=== PATIENT | female | born 1980 | race Caucasian/White ===

== ENCOUNTER 2016-05-12 13:17 | Emergency (ER) | payer OTHER ==
[~2016-05-12] VITALS: Ht 167.6 cm; Wt 89.8 kg
[~2016-05-12 13:17] MED LIST: AMITRIPTYLINE H50 M1 PO; AMITRIPTYLINE100 M2 PO; CIPRO 500MG TA500 MG PO; CLINDAMYCIN HC300 M1 PO; FIORICET-COD 51 EACH PO; FLUTICASONE PRO16 GM NASB; MACROBID 100 M100 MG PO; METHIMAZOLE5 M1 PO; METHIMAZOLE5 MG PO; MOTRIN 400MG (400 MG PO; MULTI-DAY VITA1 EACH PO; OLANZAPINE5 MG PO; PERCOCET 325 MG1 TA2 PO; PRILOSEC20 M1 PO; PYRIDIUM200 M1 PO; SIMVASTATIN10 M1 PO; TOPAMAX50 M1 PO; TORADOL10 MG PO; VALACYCLOVIR500 M1 PO; VISTARIL50 M1 PO; VITAMIN D32000 UNI1 PO; ZOFRAN4 M1 SL; ZYPREXA2.5 M1 PO
[2016-05-12 13:26] VITALS: BP 128/86
--- NOTE | 2016-05-12 13:30 | ED INFLUENZA/URI COMPLAINT ---
History of Present Illness General Chief Complaint: General Adult Stated Complaint: SOB,CHEST CONGESTION Source: patient, old records Exam Limitations: no limitations Vital Signs & Intake/Output Vital Signs & Intake/Output Vital Signs Date Time Temp Pulse Resp B/P Pulse O2 O2 Flow FiO2 Ox Delivery Rate 05/12 1346 95 Room Air 05/12 1342 99 05/12 1326 97.4 103 18 128/86 97 Room Air Allergies Coded Allergies: Sulfa (Sulfonamide Antibiotics) (RASH 10/01/15) amoxicillin (From AUGMENTIN) (RASH 10/01/15) cefuroxime (RASH 10/01/15) clavulanic acid (From AUGMENTIN) (RASH 10/01/15) propylthiouracil (RASH 10/01/15) Reconcile Medications Albuterol Sulfate (Proair Hfa) 90 MCG HFA.AER.AD 2 PUF INH Q4-6 PRN PRN WHEEZING Amitriptyline HCl 100 MG TABLET 1 TAB PO QPM MIGRAINES (Reported) Azithromycin (Zithromax) 250 MG TABLET 1 DP PO AD BRONCHITIS 2 the first day followed by 1 for days 2-5 Cholecalciferol (Vitamin D3) (Vitamin D3) 2,000 UNIT TABLET 1 TAB PO DAILY SUPPLEMENT (Reported) Clonazepam 1 MG TABLET 1 TAB PO QPM SLEEP (Reported) Fluticasone Propionate 16 GM SPRAY.SUSP 2 SPRAY NASB DAILY ALLERGIES ( Reported) Methimazole 5 MG TABLET 0.5 TAB PO DAILY THYROID (Reported) Methylprednisolone. (Medrol) 4 MG TAB.DS.PK 1 DP PO AD REACTIVE AIRWAY 6 on day 1 then reduce by one tablet daily until gone Multivitamin (Multi-Day Vitamins) 1 EACH TABLET 1 TAB PO DAILY SUPPLEMENT ( Reported) Olanzapine (Zyprexa) 2.5 MG TABLET 0.5 TAB PO QPM MENTAL HEALTH (Reported) Omeprazole 40 MG CAPSULE.DR 1 CAP PO DAILY GI (Reported) Pantoprazole Sodium 40 MG TABLET.DR 1 TAB PO DAILY GI (Reported) Simvastatin (Simvastatin*) 10 MG TABLET 1 TAB PO QPM CHOLESTEROL (Reported) SUMAtriptan (Zembrace Symtouch) 3 MG/0.5 ML PEN.INJCTR 1 INJ IM PRN HEADACHE (Reported) Topiramate (Topamax) 50 MG TABLET 1 TAB PO BID HEADACHE (Reported) VALACYCLOVIR HCL (Valacyclovir) 500 MG TABLET 1 TAB PO BID INFECTION ( Reported) Triage Note: PT STATES SHE HAS BEEN SICK AND IS FEELING THAT HER CHEST IS TIGHT AND SHE CAN'T BREATH. PT STATES SHE HAS HAD A COLD. Triage Nurses Notes Reviewed? yes Onset: Gradual Duration: week(s): (1), constant, getting worse Timing: recent history Severity: mild Severity Numbers: 4 No Modifying Factors: none Associated Symptoms: cough, muscle aches, nasal congestion, nasal drainage, shortness of breath : No Patient currently breastfeeds: No HPI: 35-year-old female with history of Graves' disease presents emergency room today complaining of a nonproductive cough and rhinorrhea congestion sinus pressure for the past 1 week. She states that she woke up this morning feeling short of breath. No history of asthma she does not smoke. She is not attempted taking any medications for her symptoms. She denies any chest pain hemoptysis abdominal pain nausea vomiting or diarrhea. There are no modifying factors or associated symptoms otherwise. (NIRANJAN IQBAL) Past History Travel History Traveled to [place] past 21 day No Medical History Any Pertinent Medical History? see below for history Neurological: migraine Cardiovascular: hyperlipidemia Gastrointestinal: GERD Hepatic: cholelithiasis Renal: nephrolithiasis x 3-4 Psychiatric: bipolar disease, depression Endocrine: Grave's disease Blood Disorders: NONE Cancer(s): NONE DAYTIME CAREGIVER/Reproductive: NONE Surgical History Surgical History: appendectomy, cholecystectomy, , hysterectomy, tubal ligation, laparoscopy for ectopic lithotripsy Psychosocial History Who do you live with Family Services at Home None What is your primary language Hungarian Tobacco Use: Never used ETOH Use: denies use Illicit Drug Use: denies illicit drug use Family History Family History, If Any: MOTHER FH: breast cancer FATHER FH: hyperlipidemia GRANDMOTHER FH: diabetes mellitus Hx Contributory? No (NIRANJAN IQBAL) Review of Systems Review of Systems Constitutional: Reports: see HPI. Comments Review of systems: See HPI, All other systems negative. Constitutional, no chills no fever, no malaise HEENT: No visual changes no sore throat no congestion, no ear pain Cardiovascular: No chest pain , no palpitation Skin, no rashes, no change in skin Respiratory: No dyspnea no cough no sputum GI: No nausea no vomiting, no diarrhea : No dysuria Muscle skeletal: No joint pain, no back pain, no neck pain, Neurologic: No numbness no headache Psych: No stress Heme/endocrine: No bruising no bleeding Immunology: No lymphadenopathy (NIRANJAN IQBAL) Physical Exam Physical Exam General Appearance: well developed/nourished, no apparent distress, alert, awake Ears, Nose, Throat: normal ENT inspection, moist mucous membrane Comments: Well-developed well-nourished patient in no apparent distress. Head/Face: Atraumatic, no maxillary/frontal sinus tenderness, no facial swelling Eyes: PERRL, EOMI, no conjunctival injection Ear:External auditory canal and Tympanic membranes clear, no erythema, no FB. Nose: atraumatic.Normal inspection: No bleeding Throat: Moist mucous membranes.Pharynx normal. No pharyngeal erythema/exudate seen. No stridor/drooling or assymetry. No swelling or edema. Neck: Supple, no lymphadenopathy, FROM Back: FROM, Nontender Cardiovascular: Regular rate and rhythms no murmurs rubs Respiratory: Chest nontender.There were no bony deformities, no asymmetry. No respiratory distress. Patient speaking in full complete sentences. Breath sounds clear to auscultation bilaterally: NO W/R/R Extremities: full range of motion Neuro: Alert and oriented x3 Skin: Warm & dry;No appreciable rash on exposed skin Psych: Mood affect normal, normal memory normal judgment. Core Measures Severe Sepsis Present: No Septic Shock Present: No (NIRANJAN IQBAL) Progress Differential Diagnosis: influenza, pneumonia, pharyngitis, sinusitis, bronchitis asthma PE Plan of Care: Current Medications Sig/Zain Start time Last Medication Dose Stop Time Status Admin Prednisone 60 MG DAILY 05/13 1000 AC . Patient appears in no apparent distress at this time speaking in full complete sentences. DuoNeb prednisone 60 mg by mouth ordered chest x-ray ordered 05/12/2016 3:16:51 PM REPEAT EVALUATION PATIENT REPORTS HER SYMPTOMS HAVE IMPROVED RESOLVED WITH BREATHING TREATMENT AND PREDNISONE. I discussed with the patient at length all of their x-ray results, need for close follow up with their primary care physician this week. I answered all of their questions, discharge instructions were given and discussed with the patient. They were given instructions as to when to return. I discussed the medications that will be provided with the patient. I gave them signs and symptoms that could indicate an adverse reaction. I have advised them to limit their activities until they can see how they respond to the medication. They feel comfortable with the plan. (NIRANJAN IQBAL) Diagnostic Imaging: Viewed by Me: Radiology Read. Discussed w/RAD: Radiology Read. Radiology Impression: : 80 LOCATION: [facility], [place] ORDERING PHYSICIAN: NIRANJAN VELEZ SERVICE DATE: 05/12/162462 EXAM TYPE: RAD - XRY-CHEST XRAY, PA AND LATERAL EXAMINATION: XR CHEST CLINICAL INFORMATION: Cough and shortness of breath. COMPARISON: 08/17/2014 TECHNIQUE: PA and lateral views of the chest were obtained. FINDINGS: Lungs are well expanded and clear with exception of a faintly visible, linear opacity from focal scar or discoid atelectasis in the lingula. There is no pulmonary consolidation or pleural effusion. Cardiac silhouette is normal in size. The mediastinal and hilar contours are normal. The trachea is midline in position. No acute skeletal findings. IMPRESSION: No significant findings. No evidence of pneumonia or hilar lymphadenopathy. DICTATED BY: CORONA RIVERA MD DATE/TIME DICTATED:05/12/161437 COFOUNDER:MELLISSA DATE/TIME TRANSCRIBED:05/12/161437 CONFIDENTIAL, DO NOT COPY WITHOUT APPROPRIATE AUTHORIZATION. <Electronically signed in Other Vendor System> SIGNED BY: CORONA RIVERA MD 05/12/16 1444 Initial ED EKG: none (NIRANJAN IQBAL) Departure Departure Time of Disposition: 1509 Disposition: HOME OR SELF CARE Condition: Stable Clinical Impression Primary Impression: Bronchitis Referrals: SILVIA WHYTE APRN (PCP/Family) Additional Instructions: Follow-up with your primary care physician this week. Z-Murray, Medrol Dosepak and albuterol inhaler as directed. These prescriptions were sent to your pharmacy Please return immediately if you get worse, you dont get better or you develop any new or concerning symptoms. Departure Forms: Customer Survey General Discharge Information Prescriptions: Current Visit Scripts Azithromycin (Zithromax) 1 DP PO AD #6 TAB 2 the first day followed by 1 for days 2-5 Methylprednisolone. (Medrol) 1 DP PO AD #1 DP 6 on day 1 then reduce by one tablet daily until gone Albuterol Sulfate (Proair Hfa) 2 PUF INH Q4-6 PRN PRN WHEEZING #1 INHAL (NIRANJAN IQBAL) PA/AGRICULTURAL ADVISER Co-Sign Statement Statement: ED Attending supervision documentation- [] I saw and evaluated the patient. I have also reviewed all the pertinent lab results and diagnostic results. I agree with the findings and the plan of care as documented in the PA's/AGRICULTURAL ADVISER's documentation. [X] I have reviewed the ED Record and agree with the PA's/AGRICULTURAL ADVISER's documentation. [] Additions or exceptions (if any) to the PAs/AGRICULTURAL ADVISER's note and plan are summarized below: [] (MENDOZA BHATTI,RON)
[2016-05-12] MEDS ORDERED: OMEPRAZOLE40 M1 PO (13:51)
[2016-05-12] MEDS ORDERED: CLONAZEPAM1 M2 PO (13:55)
[2016-05-12] MEDS ORDERED: ZEMBRACE S3 MG/0.5 M IM (13:57)
[2016-05-12] MEDS ORDERED: PANTOPRAZOLE SO40 M1 PO (13:58)
--- NOTE | 2016-05-12 14:44 | RADIOLOGY REPORT ---
EXAMINATION: XR CHEST CLINICAL INFORMATION: Cough and shortness of breath. COMPARISON: 08/17/2014 TECHNIQUE: PA and lateral views of the chest were obtained. FINDINGS: Lungs are well expanded and clear with exception of a faintly visible, linear opacity from focal scar or discoid atelectasis in the lingula. There is no pulmonary consolidation or pleural effusion. Cardiac silhouette is normal in size. The mediastinal and hilar contours are normal. The trachea is midline in position. No acute skeletal findings. IMPRESSION: No significant findings. No evidence of pneumonia or hilar lymphadenopathy.
[2016-05-12] MEDS ORDERED: PROAIR HFA8.5 GM INH (15:12)
[2016-05-12] MEDS ORDERED: MEDROL4 M2 PO (15:12)
[2016-05-12] MEDS ORDERED: ZITHROMAX250 M2 PO (15:12)
== END 2016-05-12 15:30 ==
LOC: ERH 13:17
DX: J40 Bronchitis, not specified as acute or chronic (principal)
CPT/HCPCS: 1263

== ENCOUNTER 2016-08-24 16:34 | Emergency (ER) | payer OTHER ==
[~2016-08-24] VITALS: Ht 167.6 cm; Wt 83.0 kg
[~2016-08-24 16:34] MED LIST changes: +CLONAZEPAM1 M2 PO; +MEDROL4 M2 PO; +OMEPRAZOLE40 M1 PO; +PANTOPRAZOLE SO40 M1 PO; +PROAIR HFA8.5 GM INH; +ZEMBRACE S3 MG/0.5 M IM; +ZITHROMAX250 M2 PO
[2016-08-24 16:46] VITALS: BP 131/87
[2016-08-24] MEDS ORDERED: FIORICET 50-301 EACH PO (17:09)
--- NOTE | 2016-08-24 17:09 | ED HEADACHE COMPLAINT ---
History of Present Illness General Chief Complaint: Headache Stated Complaint: MIGRANE X 4DYS Source: patient Exam Limitations: no limitations Vital Signs & Intake/Output Vital Signs & Intake/Output Vital Signs Date Time Temp Pulse Resp B/P B/P Pulse O2 O2 Flow FiO2 Mean Ox Delivery Rate 08/24 1646 98.6 100 18 131/87 99 Room Air Allergies Coded Allergies: Sulfa (Sulfonamide Antibiotics) (RASH 10/01/15) amoxicillin (From AUGMENTIN) (RASH 10/01/15) cefuroxime (RASH 10/01/15) clavulanic acid (From AUGMENTIN) (RASH 10/01/15) propylthiouracil (RASH 10/01/15) Reconcile Medications Albuterol Sulfate (Proair Hfa) 90 MCG HFA.AER.AD 2 PUF INH Q4-6 PRN PRN WHEEZING Amitriptyline HCl 100 MG TABLET 1 TAB PO QPM MIGRAINES (Reported) Butalb/Acetaminophen/Caffeine (Fioricet 50-300-40 MG Capsule) 50 MG-300 MG-40 MG CAPSULE 1-2 TAB PO Q6P PRN HEADACHE Cholecalciferol (Vitamin D3) (Vitamin D3) 2,000 UNIT TABLET 1 TAB PO DAILY SUPPLEMENT (Reported) Clonazepam 1 MG TABLET 1 TAB PO QPM SLEEP (Reported) Ibuprofen 800 MG TABLET 1 TAB PO AD PRN PAIN (Reported) Methimazole 5 MG TABLET 0.5 TAB PO DAILY THYROID (Reported) Multivitamin (Multi-Day Vitamins) 1 EACH TABLET 1 TAB PO DAILY SUPPLEMENT ( Reported) Multivitamin (Multi-Day Vitamins) 1 EACH TABLET 1 TAB PO DAILY SUPPLEMENT ( Reported) Omeprazole 40 MG CAPSULE.DR 1 CAP PO DAILY GI (Reported) Simvastatin (Simvastatin*) 10 MG TABLET 1 TAB PO QPM CHOLESTEROL (Reported) SUMAtriptan (Zembrace Symtouch) 3 MG/0.5 ML PEN.INJCTR 1 INJ IM PRN HEADACHE (Reported) Topiramate (Topamax) 50 MG TABLET 1 TAB PO BID HEADACHE (Reported) Valacyclovir HCl (Valacyclovir) 500 MG TABLET 1 TAB PO BID ANTIVIRAL ( Reported) Triage Note: PT TO TRIAGE WITH MIGRAINE AND NAUSEA x4DAYS. PT IS ON ZEMBRACE, HAS BEEN TAKING TYLENOL AND MOTRIN WITH NO RELIEF. VSS. Triage Nurses Notes Reviewed? yes Onset: Abrupt Duration: day(s): (4), constant, continues in ED Timing: recent history Quality/Severity: moderate, severe No Modifying Factors: none : No Patient currently breastfeeds: No HPI: 35-year-old female comes into emergency room with complaints of a migraine headache for the past 4 days. Patient has a history of migraine headaches and reports it feels consistent with her previous headaches. Diffuse pain. Severe. Especially over the left temporal region. Light sensitivity and noise sensitivity. Associated nausea but denies any vomiting. Denies any fever. Denies any other associated symptoms. Patient has been taking medications at home with no relief. (JANE HURT) Past History Travel History Traveled to [place] past 21 day No Medical History Any Pertinent Medical History? see below for history Neurological: migraine Cardiovascular: hyperlipidemia Gastrointestinal: GERD Hepatic: cholelithiasis Renal: nephrolithiasis x 3-4 Psychiatric: bipolar disease, depression Endocrine: Grave's disease Blood Disorders: NONE Cancer(s): NONE INK BLENDER/Reproductive: NONE Surgical History Surgical History: appendectomy, cholecystectomy, , hysterectomy, tubal ligation, laparoscopy for ectopic lithotripsy Psychosocial History Who do you live with Family Services at Home None What is your primary language Peruvian Tobacco Use: Never used Family History Family History, If Any: MOTHER FH: breast cancer FATHER FH: hyperlipidemia GRANDMOTHER FH: diabetes mellitus Hx Contributory? No (JANE HURT) Review of Systems Review of Systems Constitutional: Reports: no symptoms. Eyes: Reports: no symptoms. Ears, Nose, Throat, Mouth: Reports: no symptoms. Respiratory: Reports: no symptoms. Cardiovascular: Reports: no symptoms. Gastrointestinal/Abdominal: Reports: no symptoms. Genitourinary: Reports: no symptoms. Musculoskeletal: Reports: no symptoms. Skin: Reports: no symptoms. Neurological/Psychological: Reports: see HPI. Hematologic/Endocrine: Reports: no symptoms. Endocrine: Reports: no symptoms. Immunologic/Allergic: Reports: no symptoms. All Other Systems: Reviewed and Negative (JANE HURT) Physical Exam Physical Exam General Appearance: well developed/nourished, alert, awake Head: atraumatic, normal appearance Eyes: Bilateral: normal appearance, EOMI. Ears, Nose, Throat: normal pharynx, normal ENT inspection, hearing grossly normal Neck: normal inspection, full range of motion Respiratory: normal breath sounds, chest non-tender, no respiratory distress Cardiovascular: regular rate/rhythm Back: normal inspection Extremities: normal inspection Psychiatric: awake, alert, oriented x 3 Cranial Nerves: normal hearing, normal speech, PERRL Coordination/Gait: normal gait Motor/Sensory: no motor/sensory deficits Skin: intact, normal color Core Measures Severe Sepsis Present: No Septic Shock Present: No (JANE HURT) Progress Differential Diagnosis: carotid dissection, cav sinus thromb, cluster LUGO, encephalitis, IC mass/tumor, intracranial Hem., meningitis, migraine LUGO, musculoskeletal pain, sinusitis, SSS thrombosis, subarach. Hem., tension LUGO, temporal arteritis, TMJ syndrome, viral cephalgia Plan of Care: Current Medications Sig/Zain Start time Last Medication Dose Stop Time Status Admin Sodium Chloride 1,000 ML BOLUS ONE 08/24 1844 AC (Normal Saline 0.9%) 08/25 1943 Comments: 08/24/2016 6:54:26 PM Patient clinically looks well and feels better after IV medications. His migraine is consistent with previous headaches. Not sudden onset. Gradual. No suspicion for subarachnoid hemorrhage. No nuchal rigidity. No suspicion for meningitis. Neurologically intact. Follow-up with neurologist. (JANE HURT) Departure Departure Disposition: HOME OR SELF CARE Condition: Stable Clinical Impression Primary Impression: Migraine Referrals: SILVIA WHYTE APRN (PCP/Family) Additional Instructions: Take Fioricet as prescribed. Follow-up with your neurologist. Return if any concerns worsening symptoms. Please go over all results of today's visit with your primary care doctor. Contact your primary care doctor to let them know you were here in the emergency room. There may be nonspecific findings which may not be related to your visit today here in the emergency room but may require further evaluation and chronic monitoring by your primary care doctor. If you had a laceration today the chance of foreign body always remains. You should follow-up with your primary care doctor for recheck in 3-5 days for a wound check. If you had an x-ray done there is a chance that a fracture could have been missed on initial read and you should follow-up with your primary care doctor for repeat x-rays if symptoms persist. If your blood pressure was elevated here in the emergency room please have rechecked by her primary care doctor within the next 48 hours by your primary care doctor. If you were prescribed a narcotic here in the emergency room or any type of controlled substances you're not allowed to drive while taking this medication or operate any type of heavy machinery. Narcotics can make you feel lightheaded dizziness nausea and can cause constipation. You may need to shrimp picker a stool softener. Thank you for choosing [facility] emergency room. Please return to the emergency room immediately if you have any other concerns worsening of symptoms. Departure Forms: Customer Survey General Discharge Information Prescriptions: Current Visit Scripts Butalb/Acetaminophen/Caffeine (Fioricet 50-300-40 MG Capsule) 1-2 TAB PO Q6P PRN HEADACHE #20 MG (JANE HURT) PA/PHYSICALLY IMPAIRED TEACHER Co-Sign Statement Statement: ED Attending supervision documentation- [] I saw and evaluated the patient. I have also reviewed all the pertinent lab results and diagnostic results. I agree with the findings and the plan of care as documented in the PA's/PHYSICALLY IMPAIRED TEACHER's documentation. [X] I have reviewed the ED Record and agree with the PA's/PHYSICALLY IMPAIRED TEACHER's documentation. [] Additions or exceptions (if any) to the PAs/PHYSICALLY IMPAIRED TEACHER's note and plan are summarized below: [] (JASON BHATTI,DOMINIQUE Castro)
[2016-08-24] MEDS ORDERED: MULTI-DAY VITA1 EACH PO (17:43)
[2016-08-24] MEDS ORDERED: IBUPROFEN800 M1 PO (17:45)
== END 2016-08-24 19:06 ==
LOC: ERH 16:34
DX: G43.909 Migraine, unspecified, not intractable, without status migrainosus (principal)
CPT/HCPCS: 96361; 96374; 96375; J1885; J2765

== ENCOUNTER 2017-06-11 16:13 | Emergency (ER) | payer OTHER ==
[~2017-06-11] VITALS: Ht 167.6 cm; Wt 78.9 kg
[~2017-06-11 16:13] MED LIST changes: +FIORICET 50-301 EACH PO; +IBUPROFEN800 M1 PO
--- NOTE | 2017-06-11 18:57 | ED HEADACHE COMPLAINT ---
History of Present Illness General Chief Complaint: Headache Stated Complaint: "MIGRAINE FOR 4 DAYS" Source: patient Exam Limitations: no limitations Vital Signs & Intake/Output Vital Signs & Intake/Output Vital Signs Date Time Temp Pulse Resp B/P B/P Pulse O2 O2 Flow FiO2 Mean Ox Delivery Rate 06/11 1934 97.2 67 20 127/83 94 Room Air 06/11 1632 98.0 99 18 138/91 99 Room Air Allergies Coded Allergies: Sulfa (Sulfonamide Antibiotics) (RASH 10/01/15) amoxicillin (From AUGMENTIN) (RASH 10/01/15) cefuroxime (RASH 10/01/15) clavulanic acid (From AUGMENTIN) (RASH 10/01/15) propylthiouracil (RASH 10/01/15) Reconcile Medications Albuterol Sulfate (Proair Hfa) 90 MCG HFA.AER.AD 2 PUF INH Q4-6 PRN PRN WHEEZING Amitriptyline HCl 100 MG TABLET 1 TAB PO QPM MIGRAINES (Reported) Butalb/Acetaminophen/Caffeine (Fioricet 50-300-40 MG Capsule) 50 MG-300 MG-40 MG CAPSULE 1-2 TAB PO Q6P PRN HEADACHE Butalb/Acetaminophen/Caffeine (Zebutal 50-325-40 MG Capsule) 50 MG-325 MG-40 MG CAPSULE 1 TAB PO TID PRN MIGRAINE Cholecalciferol (Vitamin D3) (Vitamin D3) 2,000 UNIT TABLET 1 TAB PO DAILY SUPPLEMENT (Reported) Clonazepam 1 MG TABLET 1 TAB PO QPM SLEEP (Reported) Ibuprofen 800 MG TABLET 1 TAB PO AD PRN PAIN (Reported) Methimazole 5 MG TABLET 0.5 TAB PO DAILY THYROID (Reported) Methylprednisolone. (Medrol) 4 MG TAB.DS.PK 1 DP PO AD INFLAMMATION 6 on day 1 then reduce by one tablet daily until gone Multivitamin (Multi-Day Vitamins) 1 EACH TABLET 1 TAB PO DAILY SUPPLEMENT ( Reported) Multivitamin (Multi-Day Vitamins) 1 EACH TABLET 1 TAB PO DAILY SUPPLEMENT ( Reported) Omeprazole 40 MG CAPSULE.DR 1 CAP PO DAILY GI (Reported) Ondansetron HCl (Zofran) 4 MG TABLET 1 TAB PO Q6-8P PRN NAUSEA Simvastatin (Simvastatin*) 10 MG TABLET 1 TAB PO QPM CHOLESTEROL (Reported) SUMAtriptan (Zembrace Symtouch) 3 MG/0.5 ML PEN.INJCTR 1 INJ IM PRN HEADACHE (Reported) Sumatriptan Succinate (Imitrex) 50 MG TABLET 1 TAB PO AD PRN MIGRAINE TAKE ONE TAB BY MOUTH, IF NO BETTER REPEAT IN 30 MIN DO NOT EXCEED TWO TABS IN ONE DAY Topiramate (Topamax) 50 MG TABLET 1 TAB PO BID HEADACHE (Reported) Valacyclovir HCl (Valacyclovir) 500 MG TABLET 1 TAB PO BID ANTIVIRAL ( Reported) Triage Note: PT TO ED FOR MIGRAINE X 4 DAYS, NO RELIEF WITH MOTRIN/TYLENOL, SPOKE TO NEUROLOGIST "BUT HER NURSE WOULDN'T HELP ME". +PHOTOPHOBIA, NAUSEA. Triage Nurses Notes Reviewed? yes Onset: Gradual Duration: constant Timing: recent history Severity Numbers: 7 Head Injury Location: global : No Patient currently breastfeeds: No HPI: Patient is a 36-year-old female with a past medical history of chronic migraines who presents emergency room with concerns of 4 day history of gradual onset of persistent migraine unrelieved with Tylenol and Motrin. Patient has associated symptoms of sensitivity to noise photophobia mild nausea without emesis patient can tolerate by mouth denies any abdominal pain fever chills neck pain denies any acute onset or thunderclap headache or worse headache of life. Patient's neurologist Dr. Ruelas (Cole Clemente) Past History Travel History Traveled to [place] past 21 day No Medical History Any Pertinent Medical History? 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 No (Cole Clemente) Review of Systems Review of Systems Constitutional: Reports: see HPI. Denies: chills, fever. Eyes: Reports: see HPI, photophobia. Ears, Nose, Throat, Mouth: Reports: no symptoms. Respiratory: Reports: no symptoms. Cardiovascular: Reports: no symptoms. Gastrointestinal/Abdominal: Reports: see HPI, nausea. Denies: abdominal pain. Genitourinary: Reports: no symptoms. Musculoskeletal: Reports: no symptoms. Skin: Reports: no symptoms. Neurological/Psychological: Reports: see HPI, headache. Hematologic/Endocrine: Reports: no symptoms. Endocrine: Reports: no symptoms. Immunologic/Allergic: Reports: no symptoms. All Other Systems: Reviewed and Negative (Cole Clemente) Physical Exam Physical Exam General Appearance: well developed/nourished, alert, awake, moderate distress Head: atraumatic Eyes: Bilateral: normal appearance, PERRL, EOMI. Ears, Nose, Throat: normal pharynx, normal ENT inspection, hearing grossly normal Neck: normal inspection Respiratory: normal breath sounds, chest non-tender, no respiratory distress Cardiovascular: regular rate/rhythm Gastrointestinal: normal bowel sounds, soft, non-tender Extremities: normal inspection Psychiatric: awake, alert, oriented x 3 Cranial Nerves: normal hearing, normal speech, PERRL Skin: intact Comments: CN II-XXII INTACT Core Measures Sepsis Present: No Sepsis Focused Exam Completed? No (Cole Clemente) Progress Differential Diagnosis: carotid dissection, cav sinus thromb, cluster LUGO, encephalitis, IC mass/tumor, intracranial Hem., meningitis, migraine LUGO, musculoskeletal pain, sinusitis, SSS thrombosis, subarach. Hem., tension LUGO, temporal arteritis, TMJ syndrome, viral cephalgia Plan of Care: Patient is able tolerate by mouth afebrile unremarkable physical exam cranial nerves intact no concerns of ICH I had a long discussion with patient and offered her IV medications versus prescription medications to go home where she requested prescriptions medications She was strongly advised to follow-up with her neurologist. (Cole Clemente) Departure Departure Disposition: HOME OR SELF CARE Condition: Stable Clinical Impression Primary Impression: Migraine Referrals: Gretchen Figueroa APRN (PCP/Family) Additional Instructions: As discussed BEGIN and continue [id number] ibuprofen as directed, begin the prescription of ZEBUTAL as directed and begin the prescription of Imitrex for breakthrough headache relief. Begin the prescription of Medrol Dosepak tomorrow YOU received this medication the emergency room today and begin the prescription of Zofran for nausea Prescriptions WAITING at [facility], symptoms worsen return to emergency ROOM if no better on Niall follow-up with your neurologist Dr. Ruelas Departure Forms: Customer Survey General Discharge Information Prescriptions: Current Visit Scripts Ondansetron HCl (Zofran) 1 TAB PO Q6-8P PRN NAUSEA #10 TAB Methylprednisolone. (Medrol) 1 DP PO AD #1 DP 6 on day 1 then reduce by one tablet daily until gone Butalb/Acetaminophen/Caffeine (Zebutal 50-325-40 MG Capsule) 1 TAB PO TID PRN MIGRAINE #12 TAB Sumatriptan Succinate (Imitrex) 1 TAB PO AD PRN MIGRAINE #9 TAB TAKE ONE TAB BY MOUTH, IF NO BETTER REPEAT IN 30 MIN DO NOT EXCEED TWO TABS IN ONE DAY (Cole Clemente) PA/DIE CASTING MACHINE OPERATOR Co-Sign Statement Statement: ED Attending supervision documentation- I saw and evaluated the patient. I have also reviewed all the pertinent lab results and diagnostic results. I agree with the findings and the plan of care as documented in the PA's/DIE CASTING MACHINE OPERATOR's documentation. x I have reviewed the ED Record and agree with the PA's/DIE CASTING MACHINE OPERATOR's documentation. [] Additions or exceptions (if any) to the PAs/DIE CASTING MACHINE OPERATOR's note and plan are summarized below: [] (Macario BHATTI,Terell)
[2017-06-11] MEDS ORDERED: IMITREX50 M1 PO (19:29)
[2017-06-11] MEDS ORDERED: ZEBUTAL 50-3251 EACH PO (19:29)
[2017-06-11] MEDS ORDERED: ZOFRAN4 M2 PO (19:29)
[2017-06-11] MEDS ORDERED: MEDROL4 M2 PO (19:29)
[2017-06-11 19:34] VITALS: BP 127/83
== END 2017-06-11 19:44 ==
LOC: ERH 16:13
DX: G43.909 Migraine, unspecified, not intractable, without status migrainosus (principal)
CPT/HCPCS: J3101